=== PATIENT | male | born 1950 | race Caucasian/White ===

== ENCOUNTER → 2016-05-23 | Outpatient (CLI) | payer MEDICARE, BC ==
[~2016-05-23] MED LIST: AMLO1CAP46 PO; ASPI-611 PO; SIMV20TA89 PO; TOPI100T27 PO; TOPI50TA PO; [UNRECOGNIZED DRUG - CODE] PO
[2016-05-23 10:55] LABS: BASOPHILS % (AUTO) 0.5 % (0-2); EOSINOPHILS # (AUTO) 0.2 T/MM3 (0-0.5); EOSINOPHILS % (AUTO) 5.4 % (0-4); HCT - HEMATOCRIT 44.5 % (41-53); HGB - HEMOGLOBIN 14.8 GM/DL (13.5-17.5); LYMPHOCYTES # (AUTO) 1.8 T/MM3 (1-4.8); LYMPHOCYTES % (AUTO) 46.6 % (23-45); MEAN CORPUSCULAR HGB 33.6 UUG (26-34); MEAN CORPUSCULAR HGB CONC(MCHC 33.3 GM/DL (31-37); MEAN CORPUSCULAR VOLUME 101.1 UM3 (80-100); MEAN PLATELET VOLUME 9.9 UM3 (9.4-12.4); MONOCYTES # (AUTO) 0.3 T/MM3 (0-0.8); MONOCYTES % (AUTO) 8.5 % (0-9.0); NEUTROPHILS #(AUTO)-ABSOLUTE 1.5 T/MM3 (1.8-7.7); WBC - WHITE BLOOD COUNT 3.9 T/MM3 (4.5-11.0)
[2016-05-23 11:04] LABS: ALBUMIN 3.7 G/DL (3.5-5.0); ALBUMIN/GLOBULIN RATIO 1.2 RATIO (1.1-2.2); ALKALINE PHOSPHATASE 45 U/L (38-126); ALT (SGPT) 39 U/L (21-72); ANION GAP 7 MEQ/L (5-15); AST (SGOT) 28 U/L (17-59); BUN/CREATININE RATIO 18 RATIO (6-26); CHLORIDE 111 MEQ/L (98-107); CO2 - CARBON DIOXIDE 26 MEQ/L (22-30); CREATININE 1.2 MG/DL (0.8-1.5); GLOMERULAR FILTRATION RATE 61; GLUCOSE 125 MG/DL (75-110); LDH 462 U/L (313-618); POTASSIUM 4.1 MEQ/L (3.6-5); SODIUM 144 MEQ/L (134-144); TOTAL PROTEIN 6.8 G/DL (6.3-8.2)
--- NOTE | 2016-05-23 13:02 | DI ---
Indication: ITS.REASON: C64.1 Malignant neoplasm of right kidney, except renal pelvis PROCEDURE: CT CHEST/ABDOMEN/PELVIS W/O: Encounter: Subsequent Comparison: CT chest, abdomen and pelvis dated January 18, 2016 Technique: Axial CT images were performed through the chest, abdomen and pelvis without intravenous contrast. Coronal and sagittal two-dimensional reformats. Automated Exposure Control and Iterative Reconstruction dose reducing techniques were utilized. Findings: Chest: The lungs are stable in appearance with an area of pleural scarring in the right lower lobe. No pneumonia, pleural effusion or pneumothorax. The central airways are patent. Low-attenuation left thyroid nodule is again seen and unchanged. No axillary or mediastinal lymphadenopathy. Heart size is stable. No pericardial effusion. Scattered coronary artery and great vessel calcifications. Abdomen/pelvis: Evaluation is somewhat limited without IV contrast. The liver shows a normal contour without obvious mass or bile duct dilatation. The gallbladder is normal. The spleen is normal. The known tiny metastatic foci in the pancreatic body and tail are not visible on this study. The cystic mass in the pancreatic head is stable to slightly decreased in size. Prior right nephrectomy. Left adrenal gland appears normal. Left kidney is normal. Bladder is unremarkable. No free fluid. No evidence of a bowel obstruction. No adenopathy seen in the abdomen or pelvis. Bone windows are unchanged without focal lytic or blastic lesion. Impression: Overall stable exam without evidence of new or worsening metastatic disease in the chest, abdomen or pelvis. .
== END ==
LOC: IMA 08:38
PROVIDERS: ATTEND Internal Medicine Hematology & Oncology
DX: C64.1 Malignant neoplasm of right kidney, except renal pelvis (principal)
CPT/HCPCS: 36415; 80053; 83615; 85025